=== PATIENT | female | born 1985 | race Caucasian/White ===

== ENCOUNTER 2019-08-05 05:58 | Day surgery (SDC) | payer MEDICAID, OTHER ==
[~2019-08-05] VITALS: Ht 168.9 cm; Wt 72.6 kg
[~2019-08-05 05:58] MED LIST: ESCI5TAB PO; NORG1TAB19 PO
[2019-08-05 06:44] LABS: UCG SCREEN NEGATIVE
[2019-08-05] MEDS ORDERED: LACTATED RINGERS 1,000 ML IV SCH (06:45)
[2019-08-05] MEDS ORDERED: BUPIVACAINE HCL/PF 0.5% (5MG/ML) 10ML ONE (06:53)
[2019-08-05 07:39] LABS: CHLORIDE 107 mEq/L (98-107)
[2019-08-05 07:42] LABS: BASOPHILS % 0.9 % (0.0-2.0); EOSINOPHILS % 1.2 % (0.0-5.0); HEMOGLOBIN. 13.9 g/dL (12.0-16.0); LYMPHOCYTES % 34.3 % (20.0-50.0); MEAN CORPUSCULAR VOLUME 89.1 fL (81.0-99.0); MEAN PLATELET VOLUME 7.9 fl (7.4-10.4); MONOCYTES % 5.6 % (2.0-8.0); PLATELET 201 x1000/uL (130-400); RED BLOOD CELL COUNT 4.49 mill/uL (4.2-5.4); RED CELL DISTRIBUTION WIDTH 12.4 % (11.6-14.6)
[2019-08-05] MEDS ORDERED: FENTANYL CITRATE/PF 50MCG/ML 2ML VIAL ONE ×3 (09:18→10:52)
[2019-08-05] MEDS ORDERED: CEFAZOLIN SODIUM 1000MG/VIAL ONE (09:19)
[2019-08-05] MEDS ORDERED: PHENYLEPHRINE HCL 10 MG/ML 1ML (IV VIAL) IV ONE (09:19)
[2019-08-05] MEDS ORDERED: GLYCOPYRROLATE 0.2 MG/ML 2ML VIAL ONE (09:19)
[2019-08-05] MEDS ORDERED: MIDAZOLAM HCL 2 MG/2 ML VIAL ONE (09:19)
[2019-08-05] MEDS ORDERED: METOCLOPRAMIDE HCL 10MG/2ML VIAL ONE (09:19)
[2019-08-05] MEDS ORDERED: PROPOFOL 200MG/20ML VIAL IV ONE (09:19)
[2019-08-05] MEDS ORDERED: SUCCINYLCHOLINE CHLORIDE 200MG/10ML IV ONE (09:19)
[2019-08-05] MEDS ORDERED: ROCURONIUM BROMIDE 10MG/ML VIAL 5ML IV ONE (09:19)
[2019-08-05] MEDS ORDERED: NEOSTIGMINE METHYLSULFATE 1MG/ML 10 ML VIAL ONE (09:19)
[2019-08-05] MEDS ORDERED: SODIUM CHLORIDE 0.9% 10ML VIAL ONE (09:19)
[2019-08-05] MEDS ORDERED: LIDOCAINE HCL/PF 1% 10 MG/ML 5ML VIAL ONE (09:19)
[2019-08-05] MEDS ORDERED: ONDANSETRON HCL 4MG/2ML INJ ONE (09:19)
[2019-08-05] MEDS ORDERED: DEXAMETHASONE 4MG/ML 1ML VIAL ONE (09:19)
[2019-08-05] MEDS ORDERED: VASOPRESSIN 20 UNIT/ML 1ML ONE (09:49)
[2019-08-05] MEDS ORDERED: SKIN ADHESIVE 0.7 GM EA TOP ONE (11:03)
[2019-08-05] MEDS ORDERED: SODIUM CHLORIDE 0.9% 1,000 ML IV ONE (11:13)
[2019-08-05] MEDS ORDERED: HYDROMORPHONE HCL/PF 2MG/ML CPJ IV PRN (11:15)
[2019-08-05] MEDS ORDERED: MEPERIDINE HCL/PF 25MG/ML CPJ IV PRN ×2 (11:15)
[2019-08-05] MEDS ORDERED: ONDANSETRON HCL 4MG/2ML INJ IV PRN (11:15)
[2019-08-05] MEDS ORDERED: MORPHINE SULFATE 2 MG/ML CPJ (NOT FOR IM USE) IV PRN (11:15)
[2019-08-05] MEDS ORDERED: LACT1CAP60 PO (12:34)
[2019-08-05 12:42] VITALS: BP 121/76
== END 2019-08-05 14:30 | disposition home or self-care (01) ==
LOC: OR 05:58
PROVIDERS: ATTEND Obstetrics & Gynecology
DX: D25.9 Leiomyoma of uterus, unspecified (principal); N94.6 Dysmenorrhea, unspecified; N92.0 Excessive and frequent menstruation with regular cycle; R10.2 Pelvic and perineal pain; N80.0 Endometriosis of uterus; N80.3 Endometriosis of pelvic peritoneum; N73.6 Female pelvic peritoneal adhesions (postinfective); N80.9 Endometriosis, unspecified; F32.9 Major depressive disorder, single episode, unspecified; F41.9 Anxiety disorder, unspecified; Z97.5 Presence of (intrauterine) contraceptive device; Z79.899 Other long term (current) drug therapy; Z98.890 Other specified postprocedural states
CPT/HCPCS: 36415; 58301; 58545; 58662; 80048; 81025; 82962; 85025; 86850; 86900; 86901; 88300; 88305; J0330; J0690; J1100; J2175; J2250; J2270; J2370; J2405; J2704; J2710; J2765; J3010; J3490; S2900